=== PATIENT | female | born 2000 | race Hispanic/Latino ===

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

== ENCOUNTER 2021-06-08 07:00 | Outpatient (CLI) | payer OTHER | END 2021-06-08 07:01 | disposition home or self-care (01) | LOC: BICMRI 07:00 | PROVIDERS: ATTEND Orthopaedic Surgery | DX: M23.91 Unspecified internal derangement of right knee (principal); S83.004A Unspecified dislocation of right patella, initial encounter; M25.461 Effusion, right knee ==

== ENCOUNTER 2022-06-08 20:08 | Emergency (ER) | payer OTHER | END 2022-06-09 00:09 | disposition home or self-care (01) | LOC: ERS 20:08 | DX: S43.401A Unspecified sprain of right shoulder joint, initial encounter (principal); S63.502A Unspecified sprain of left wrist, initial encounter; V89.2XXA Person injured in unspecified motor-vehicle accident, traffic, initial encounter | CPT/HCPCS: 71045 ==